=== PATIENT | male | born 1985 | race Caucasian/White ===

== ENCOUNTER 2019-06-01 14:18 | Emergency (ER) | payer BC ==
[2019-06-01] MEDS ORDERED: SODIUM CHLORIDE 0.9% 500 ML 500 ML IV ONE (14:52)
--- NOTE | 2019-06-01 14:59 | ED ---
General Adult HPI - General Chief complaint: Shortness of Breath Stated complaint: Fever, Cough Time Seen by Provider: 06/01/19 14:28 Source: patient Mode of arrival: ambulatory Limitations: no limitations - History of Present Illness Initial comments: 36 mL presenting for fever cough concern for possible cold 19. Patient states that he works in [employer] frequently for the past month. 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 Patient states 8 days ago he developed a dry cough, he states that he has began feeling more weak. Denies significant SOB. Denies chest pain, abdominal pain, diarrhea. Denies syncope. Denies vomiting. Patient states that he did have body aches all over his torso for the past few days. He states he feels like he is getting worse, especially with weakness and fatigue thus presented to the ER today for evaluation. - Related Data Previous Rx's Medication Instructions Recorded Azithromycin 250 mg PO DAILY 4 Days #4 tab 06/01/19 Allergies Allergy/AdvReac Type Severity Reaction Status Date / Time No Known Allergies Allergy Verified 06/01/19 14:54 Review of Systems ROS Statement: Those systems with pertinent positive or pertinent negative responses have been documented in the HPI. ROS Other: All systems not noted in ROS Statement are negative. Past Medical History Past Medical History: No Reported History History of Any Multi-Drug Resistant Organisms: None Reported Past Surgical History: Hernia Repair Additional Past Surgical History / Comment(s): right eye surgery Past Psychological History: No Psychological Hx Reported Smoking Status: Former smoker Past Alcohol Use History: None Reported Past Drug Use History: None Reported General Exam - General Exam Comments Initial Comments: General: The patient is awake and alert, in no distress Eye: Pupils are equal, round and reactive to light, extra-ocular movements are intact. No nystagmus. There is normal conjunctiva bilaterally. No signs of icterus. Ears, nose, mouth and throat: There are moist mucous membranes and no oral lesions. Neck: The neck is supple, there is no tenderness or JVD. No nuchal rigidity Cardiovascular: There is a regular rate and rhythm. No murmur, rub or gallop is appreciated. Respiratory: Lungs are clear to auscultation, respirations are non-labored, breath sounds are equal. No wheezes, stridor, rales, or rhonchi. No cough during history or exam taking. Gastrointestinal: Soft, non-distended, non-tender abdomen without masses or organomegaly noted. There is no rebound or guarding present. Musculoskeletal: Normal ROM, no tenderness. Strength 5/5. Sensation intact. radial pulses equal bilaterally 2+. Neurological: A&O x 3. CN II-XII intact grossly, There are no obvious motor or sensory deficits. Coordination appears grossly intact. Speech is normal. Skin: Skin is warm and dry and no rashes or lesions are noted. No LE edema. Psychiatric: Cooperative, appropriate mood & affect, normal judgment. Limitations: no limitations Course Vital Signs 06/01/19 06/01/19 06/01/19 14:22 15:00 16:13 Temperature 98.7 F 98.9 F Pulse Rate 93 74 Respiratory 18 21 18 Rate Blood Pressure 135/90 131/89 O2 Sat by Pulse 94 L 97 Oximetry Medical Decision Making - Medical Decision Making 34-year-old male presenting for cough weakness. Patient chest x-ray revealed a possible developing right upper lobe pneumonia. Patient has mild leukopenia this is consistent with probable atypical pneumonia. Patient is afebrile he does not appear toxic. Repeat oxygen saturation 97% on room air patient does not appear to hip click. There is very occasional cough while in the room. Patient does not appear in respiratory distress. Patient denies any chest paincontrol shortness of breath. At this time feel patient is stable for discharge with outpatient azithromycin and close PCP f/u and very strict return parameters. Discussed the importance of 14 day self quarantine. Patient is agreeable and states he is comfortable with discharge. Discussed case reviewing EKG, history, labs with attneind Dr. Trimble he is agreeable to care plan. Patient discharged appearing well. - Lab Data Result diagrams: 06/01/19 14:52 06/01/19 14:52 Lab Results 06/01/19 06/01/19 06/01/19 Range/Units 14:52 14:52 14:52 WBC 3.4 L (3.8-10.6) k/uL RBC 5.25 (4.30-5.90) m/uL Hgb 16.5 (13.0-17.5) gm/dL Hct 46.6 (39.0-53.0) % MCV 88.8 (80.0-100.0) fL MCH 31.5 (25.0-35.0) pg MCHC 35.4 (31.0-37.0) g/dL RDW 12.4 (11.5-15.5) % Plt Count 212 (150-450) k/uL Neutrophils % 43 % Lymphocytes % 41 % Monocytes % 10 % Eosinophils % 2 % Basophils % 0 % Neutrophils # 1.5 (1.3-7.7) k/uL Lymphocytes # 1.4 (1.0-4.8) k/uL Monocytes # 0.4 (0-1.0) k/uL Eosinophils # 0.1 (0-0.7) k/uL Basophils # 0.0 (0-0.2) k/uL PT (9.0-12.0) sec INR (<1.2) APTT (22.0-30.0) sec Sodium 138 (137-145) mmol/L Potassium 4.4 (3.5-5.1) mmol/L Chloride 105 (98-107) mmol/L Carbon Dioxide 25 (22-30) mmol/L Anion Gap 8 mmol/L BUN 20 (9-20) mg/dL Creatinine 0.82 (0.66-1.25) mg/dL Est GFR (CKD-EPI)AfAm >90 (>60 ml/min/1.73 sqM) Est GFR (CKD-EPI)NonAf >90 (>60 ml/min/1.73 sqM) Glucose 105 H (74-99) mg/dL Plasma Lactic Acid Jairo 1.0 (0.7-2.0) mmol/L Calcium 9.2 (8.4-10.2) mg/dL Total Bilirubin 1.9 H (0.2-1.3) mg/dL AST 53 (17-59) U/L ALT 137 H (4-49) U/L Alkaline Phosphatase 49 (38-126) U/L Troponin I (0.000-0.034) ng/mL NT-Pro-B Natriuret Pep pg/mL Total Protein 7.2 (6.3-8.2) g/dL Albumin 4.5 (3.5-5.0) g/dL 06/01/19 06/01/19 06/01/19 Range/Units 14:52 14:52 14:52 WBC (3.8-10.6) k/uL RBC (4.30-5.90) m/uL Hgb (13.0-17.5) gm/dL Hct (39.0-53.0) % MCV (80.0-100.0) fL MCH (25.0-35.0) pg MCHC (31.0-37.0) g/dL RDW (11.5-15.5) % Plt Count (150-450) k/uL Neutrophils % % Lymphocytes % % Monocytes % % Eosinophils % % Basophils % % Neutrophils # (1.3-7.7) k/uL Lymphocytes # (1.0-4.8) k/uL Monocytes # (0-1.0) k/uL Eosinophils # (0-0.7) k/uL Basophils # (0-0.2) k/uL PT 10.1 (9.0-12.0) sec INR 1.0 (<1.2) APTT 24.9 (22.0-30.0) sec Sodium (137-145) mmol/L Potassium (3.5-5.1) mmol/L Chloride (98-107) mmol/L Carbon Dioxide (22-30) mmol/L Anion Gap mmol/L BUN (9-20) mg/dL Creatinine (0.66-1.25) mg/dL Est GFR (CKD-EPI)AfAm (>60 ml/min/1.73 sqM) Est GFR (CKD-EPI)NonAf (>60 ml/min/1.73 sqM) Glucose (74-99) mg/dL Plasma Lactic Acid Jairo (0.7-2.0) mmol/L Calcium (8.4-10.2) mg/dL Total Bilirubin (0.2-1.3) mg/dL AST (17-59) U/L ALT (4-49) U/L Alkaline Phosphatase (38-126) U/L Troponin I <0.012 (0.000-0.034) ng/mL NT-Pro-B Natriuret Pep 16 pg/mL Total Protein (6.3-8.2) g/dL Albumin (3.5-5.0) g/dL Disposition Clinical Impression: Pneumonia, Cough, Body aches Disposition: HOME SELF-CARE Condition: Good Instructions (If sedation given, give patient instructions): Viral Pneumonia (ED) Additional Instructions: Please use medication as discussed. Please follow-up with family doctor in the next 2 days. Please return to emergency room if the symptoms increase or worsen or for any other concerns. Is patient prescribed a controlled substance at d/c from ED?: No Referrals: None,Stated [Primary Care Provider] - 1-2 days [facility] - 1-2 days Time of Disposition: 17:12
[2019-06-01 15:02] LABS: Basophils % (A) 0 %; Eosinophils # (A) 0.1 k/uL (0-0.7); Eosinophils % (A) 2 %; HCT 46.6 % (39.0-53.0); HGB 16.5 gm/dL (13.0-17.5); Lymphocytes # (A) 1.4 k/uL (1.0-4.8); Lymphocytes % (A) 41 %; MCH 31.5 pg (25.0-35.0); MCHC 35.4 g/dL (31.0-37.0); MCV 88.8 fL (80.0-100.0); Mean Platelet Volume 8.1; Monocytes # (A) 0.4 k/uL (0-1.0); Monocytes % (A) 10 %; Neutrophils # (A) 1.5 k/uL (1.3-7.7); Neutrophils % (A) 43 %; Platelet Count 212 k/uL (150-450); RBC 5.25 m/uL (4.30-5.90); RDW 12.4 % (11.5-15.5); WBC 3.4 k/uL (3.8-10.6)
[2019-06-01 15:11] LABS: ALT 137 U/L (4-49); AST 53 U/L (17-59); African American GFR (CKD) >90 (>60 ml/min/1.73 sqM); Albumin 4.5 g/dL (3.5-5.0); Alkaline Phosphatase 49 U/L (38-126); Anion Gap 8 mmol/L; Blood Urea Nitrogen 20 mg/dL (9-20); Calcium 9.2 mg/dL (8.4-10.2); Carbon Dioxide 25 mmol/L (22-30); Chloride 105 mmol/L (98-107); Glucose 105 mg/dL (74-99); Non-African American GFR(CKD) >90 (>60 ml/min/1.73 sqM); Potassium 4.4 mmol/L (3.5-5.1); Sodium 138 mmol/L (137-145); Total Bilirubin 1.9 mg/dL (0.2-1.3); Total Protein 7.2 g/dL (6.3-8.2)
--- NOTE | 2019-06-01 15:17 | XR ---
EXAMINATION TYPE: XR chest 2V DATE OF EXAM: 06/01/2019 COMPARISON: None HISTORY: 34 year-old male fever, cough, weakness TECHNIQUE: PA and lateral views FINDINGS: The heart is normal size. Aorta and pulmonary vasculature within normal limits. Subtle focal density projecting at the right upper lobe. No other consolidation or pleural effusion. IMPRESSION: Subtle focal density projecting at the right upper lobe. Some patchy atelectasis or early infiltrate are not excluded.
[2019-06-01 15:23] LABS: Partial Thromboplastin Time 24.9 sec (22.0-30.0); Prothrombin Time 10.1 sec (9.0-12.0)
[2019-06-01] MEDS ORDERED: AZITHROMYCIN 500 MG in SODIUM CHLORIDE 0.9% 250 ML IVPB STA (15:39)
[2019-06-01 16:16] VITALS: PULSE 74
[2019-06-01] MEDS ORDERED: AZITHROMYCIN 500 MG TAB PO STA (17:08)
[2019-06-01 17:40] VITALS: BP 135/74; RESP 19; TEMP 98.4
== END 2019-06-01 17:35 | disposition home or self-care (01) ==
LOC: EC 14:18
DX: J18.9 Pneumonia, unspecified organism (principal); D72.819 Decreased white blood cell count, unspecified; R53.1 Weakness; Z87.891 Personal history of nicotine dependence
CPT/HCPCS: 36415; 71046; 80053; 83605; 83880; 84484; 85025; 85610; 85730; 87040; 96360; 99285

== ENCOUNTER → 2022-06-20 | Outpatient (CLI) | payer BC ==
--- NOTE | 2022-06-21 23:40 | MR ---
EXAMINATION TYPE: MR knee LT wo con DATE OF EXAM: 06/20/2022 COMPARISON: Bilateral knee x-rays April 23, 2022 HISTORY: Lt knee outer pain and swelling x6 months TECHNIQUE: Multiplanar, multisequence images of the knee is performed without IV contrast. FINDINGS: MEDIAL MENISCUS: Anterior and posterior horns are intact without tear. LATERAL MENISCUS: Anterior and posterior horns are intact without tear. CRUCIATE LIGAMENTS: The anterior and posterior cruciate ligaments are intact and unremarkable. COLLATERAL LIGAMENTS: The medial collateral ligament and lateral collateral ligament complex are inta ct and unremarkable. EXTENSOR MECHANISM: Visualized quadriceps and patellar tendons are intact. EFFUSION: Small size suprapatellar joint effusion. POPLITEAL CYST: No popliteal/mendosa cyst. TRICOMPARTMENT SPACES: Mild to moderate narrowing patellofemoral compartment with mild spurring. CARTILAGE: Tricompartment articular cartilage is maintained. BONE MARROW SIGNAL: No focal abnormal marrow signal is appreciated. OTHER: No additional significant abnormality is appreciated. IMPRESSION: 1. No meniscal or ligamentous tear is seen. 2. Small suprapatellar joint effusion. 3. Mild to borderline moderate patellofemoral joint arthropathy.
== END | disposition home or self-care (01) ==
LOC: RADMRIMAIN 20:45
PROVIDERS: ATTEND Orthopaedic Surgery
DX: M25.562 Pain in left knee (principal); M25.462 Effusion, left knee

== ENCOUNTER → 2022-11-13 | Outpatient (CLI) | payer BC ==
--- NOTE | 2022-11-13 13:55 | P.SLEEP ---
History of Present Illness DATE: 11/13/2022 CONSULTATION/NEW PATIENT EVALUATION HISTORY OF PRESENT ILLNESS/SLEEP-WAKE EVALUATION: 37 year old gentleman had been evaluated in the sleep center for possible obstructive sleep apnea hypopnea syndrome. Patient has history of obstructive sleep apnea diagnosed about 10 years ago, was started on treatment with CPAP, but for different reason was not able to use CPAP equipment. SLEEP SCHEDULE: Usually sleep schedule from 910 PM until 4:30 AM on weekdays and from 10 PM to 58 AM on weekend. FALLING ASLEEP: Usually no problems with falling asleep, no TV in bedroom. DURING SLEEP: Patient has loud snoring, witnessed episodes of stop breathing during the sleep. Patient wakes up from sleep 3 times with 2 episodes of nocturia. Positive history of tossing and turning during the night No history of hypnogogical hallucinations, sleep paralysis, or cataplexy. DURING THE DAY/WAKE STATE: Patient feels sleepiness during the day. [place] sleepiness scale is increased to 10. Patient may take 1 nap during the day. PAST MEDICAL HISTORY: ADHD. 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 MEDICATIONS: Adderall 20 mg once a day. SOCIAL HISTORY: Positive history of smoking for about 12 years 1 pack a day quit in 2012, alcohol consumption occasional. FAMILY HISTORY: Snoring. REVIEW OF SYSTEMS: Snoring, multiple awakenings from sleep, sleepiness during the day. No fevers. No double vision. No recent chest pain. No shortness of breath. No abdominal pain. No bleeding episodes. No blood in urine. No seizure episodes. PHYSICAL EXAMINATION: GENERAL: A pleasant patient without any distress. VITAL SIGNS: BP 131/84 , HR 76 , RR 12 , weight to 84.2 pounds, height 5 foot 11 inches, body mass index 39 . HEENT: PERRLA, EOMI. Evaluation of oropharynx showed tongue protrudes midline, low position of soft palate Mallampati 3. NECK: Supple. No JVD. Thyroid is not palpable. 18 inches in circumference. LUNGS: Clear to percussion and to auscultation. Good air exchange. No wheezing or rhonchi. HEART: S1, S2 regular. No murmurs, gallops or rubs. ABDOMEN: Soft and nontender. Bowel sounds are present. No organomegaly appreciated. EXTREMITIES: No clubbing or cyanosis. 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 Cranial nerves 2 to 7 intact. There is no fasciculation or atrophy noted. No focal deficits observed. ASSESSMENT: 1. Loud snoring, witnessed episodes of stop breathing during the sleep, low position of soft palate Mallampati 3, wide neck 18 inches in circumference, sleepiness, history of obstructive sleep apnea in the past. Obstructive sleep apnea hypopnea syndrome. 2. Excessive daytime sleepiness, [place] Sleepiness Scale 10 while patient is o n Adderall 20 mg during the day may dictated necessity to include hypersomnia in differential diagnosis. 3. History of ADHD. 4. Obesity BMI 39. 5 status post right eye surgery 3 for muscle problems. 6 . Status post hernia repair. PLAN: 1. Home sleep apnea test for evaluation of patient's breathing during sleep. 2. CPAP/BiPAP titration if sleep study confirms obstructive sleep apnea-hypopn ea syndrome. 3. Preferable position during sleep on the side. 4. No driving if patient feels any sleepiness. Patient is aware of civil and criminal liability for unsafe driving. 5. Sleep hygiene with regular sleep time for at least 7.5-8 hours. 6. Watching and losing weight. Thank you very much for referring this patient for consultation. Sincerely, Wilfrid Moore MD, PhD, FAASM. Diplomat of [place] [employer], Sleep Medicine Board by [place] [employer] [place] [employer] [facility] [place] Past Medical History Past Medical History: No Reported History History of Any Multi-Drug Resistant Organisms: None Reported Past Surgical History: Hernia Repair Additional Past Surgical History / Comment(s): right eye surgery Past Psychological History: No Psychological Hx Reported Past Alcohol Use History: None Reported Past Drug Use History: None Reported Medications and Allergies Home Medications Medication Instructions Recorded Confirmed Type Azithromycin 250 mg PO DAILY 4 Days #4 tab 06/01/19 Rx Allergies Allergy/AdvReac Type Severity Reaction Status Date / Time No Known Allergies Allergy Verified 06/01/19 14:54 Sleep Note - Sleep Note Sleep Note: Temperature: Pulse Rate: Respiratory Rate: Blood Pressure: SpO2: Height: Weight: BMI: Neck Circumference:
== END ==
LOC: 3 N SLEEP 13:18
PROVIDERS: ATTEND Internal Medicine
DX: G47.33 Obstructive sleep apnea (adult) (pediatric) (principal); E66.9 Obesity, unspecified; F90.9 Attention-deficit hyperactivity disorder, unspecified type; Z68.39 Body mass index [BMI] 39.0-39.9, adult; Z98.890 Other specified postprocedural states; Z87.891 Personal history of nicotine dependence
CPT/HCPCS: 99211

== ENCOUNTER → 2022-11-17 | Outpatient (CLI) | payer BC | LOC: 3 N SLEEP 13:02 | PROVIDERS: ATTEND Internal Medicine | DX: G47.33 Obstructive sleep apnea (adult) (pediatric) (principal); Z87.891 Personal history of nicotine dependence ==

== ENCOUNTER → 2022-12-25 | Outpatient (CLI) | payer BC ==
--- NOTE | 2022-12-25 12:23 | P.PN ---
Subjective DATE: 12/25/2022 FOLLOW UP VISIT. Patient returned to sleep center to discuss results of home sleep apnea test and following plan. I discuss results of home sleep apnea test with patient in details. Sleep study showed extremely severe obstructive sleep apnea hypopnea syndrome with apnea-hypopnea index 76.9 and oxygen desaturation to 65%. I explained to the patient risks of not treating severe sleep apnea including increasing risks for the stroke, heart attack, hypertension, diabetes, dementia. I explained to the patient in details all possible options for treatment of obstructive sleep apnea hypopnea syndrome including losing weight, oral appliances treatment, surgical treatment, using electrostimulator. At the present time for the treatment of severe obstructive sleep apnea hypopnea syndrome only Pap treatment make results of treatment reliable with normalization of respiration. Oral appliances and using electro stimulator are not indicated for treatment of severe sleep apnea. [place] sleepiness scale is 9 . MEDICATIONS:1. Adderall 20 mg once a day During physical exam: GENERAL: A pleasant patient without any distress. VITAL SIGNS: BP 127/82 , HR 83, RR 16, weight 282.4, temperature 97.9, oxygen saturation at room air 96% . HEENT: PERRLA, EOMI. NECK: Supple. No JVD. LUNGS: Clear to percussion and to auscultation. Good air exchange. No wheezing or rhonchi. HEART: S1, S2 regular. ABDOMEN: Soft and nontender. EXTREMITIES: No clubbing or cyanosis. 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 No focal deficit. Impressions: 1. Extremely severe obstructive sleep apnea hypopnea syndrome by results of home sleep apnea test, apnea-hypopnea index 76.9 with oxygen desaturation to 65%. 2. History of ADHD. 3. Obesity. 4. Status post right eye surgery. 5. Status post hernia repair. Plan: 1. CPAP if necessary BiPAP titration for correction of respiratory abnormalities during sleep. 2. Sleep hygiene with regular time in bed for at least 8 hours. 3. Precautions related to driving. No driving if feel any sleepiness. Patient is aware about civil and criminal liability for unsafe driving, promised to follow recommendations. 4. Losing weight. 5. Follow up visit after titration to discuss results of the test.. Thank you very much for allowing me to participate in the management of your patient. Wilfrid Moore MD, PhD, FAASM. Diplomat of [place] [employer], Sleep Medicine Board by [place] [employer] [facility] [place]
== END ==
LOC: 3 N SLEEP 11:42
PROVIDERS: ATTEND Internal Medicine
DX: G47.33 Obstructive sleep apnea (adult) (pediatric) (principal); E66.9 Obesity, unspecified; F90.9 Attention-deficit hyperactivity disorder, unspecified type; Z98.890 Other specified postprocedural states; Z87.891 Personal history of nicotine dependence
CPT/HCPCS: 99212